=== PATIENT | male | born 1955 ===

== ENCOUNTER 2019-10-10 14:29 | Emergency (ER) | payer OTHER ==
[2019-10-10 14:46] VITALS: BP 143/89
--- NOTE | 2019-10-10 14:54 | UC ---
Back Pain HPI - HPI Summary HPI Summary: 64 yo male presents with neck pain. He tells me that about 2-3 weeks ago he was cutting down a michelle tree and the next day felt pain in his upper trapezius muscles b/l. He rested and took ibuprofen and felt better. When he stopped taking ibuprofen, his symptoms gradually returned. Reports that when he lays flat on his back his muscles will tighten and he feels it in his anterior shoulders. Takes a hour or so to "get loose" again. He saw his chiropractor and this helped. Yesterday he was doing a lot of lifting with garbage bags and various michelle moving of objects - today woke with increased pain. He denies headache, dizziness, SOB, chest pain, palpitations, abdominal pain, n/v, numbness, or tingling. - History of Current Complaint Chief Complaint: UCBackPain Stated Complaint: BACK AND SHOULDER PAIN Time Seen by Provider: 10/10/19 14:54 Hx Obtained From: Patient Onset/Duration: Sudden Onset Severity Initially: Moderate Severity Currently: Moderate Pain Intensity: 6 Pain Scale Used: 0-10 Numeric - Allergies/Home Medications Allergies/Adverse Reactions: Allergies Allergy/AdvReac Type Severity Reaction Status Date / Time No Known Allergies Allergy Verified 04/17/14 09:01 PMH/Surg Hx/FS Hx/Imm Hx Psychological History: Anxiety - Surgical History Surgical History: None - Family History Known Family History: Positive: Cardiac Disease, Hypertension - Social History Lives: With Family Alcohol Use: Daily Alcohol Amount: couple beers a night Substance Use Type: None Smoking Status (MU): Former Smoker Type: Cigarettes Have You Smoked in the Last Year: No - Immunization History Most Recent Tetanus Shot: no recollection Review of Systems All Other Systems Reviewed And Are Negative: No Constitutional: Positive: Negative Skin: Positive: Negative Respiratory: Positive: Negative Cardiovascular: Positive: Negative Gastrointestinal: Positive: Negative Neurovascular: Positive: Negative Musculoskeletal: Positive: Other: - Neck/shoulder pain Neurological: Positive: Negative Psychological: Positive: Negative Physical Exam - Summary Physical Exam Summary: GENERAL: NAD. WDWN. No pain distress. SKIN: No rashes, sores, lesions, or open wounds. NECK: FROM. No lymphadenopathy. CHEST: CTAB. No r/r/w. No accessory muscle use. Breathing comfortably and in no distress. CV: RRR. Pulses intact. Cap refill <2seconds. No JVD or carotid bruit. MSK: UPPER TRAPEZIUS b/l: Pain with turning neck side to side and with neck flexion. NTTP. Negative Spurlings. FROM b/l shoulders - flexion/internal or external rotation does not reproduce pain. NEURO: Alert. Sensations intact C4-T1 b/l. PSYCH: Age appropriate behavior. Triage Information Reviewed: Yes Vital Signs: Initial Vital Signs Temp 99.0 F 10/10/19 14:38 Pulse 93 10/10/19 14:38 Resp 18 10/10/19 14:38 BP 143/89 10/10/19 14:38 Pulse Ox 99 10/10/19 14:38 Vital Signs Reviewed: Yes Back Pain Course/Dx - Course Course Of Treatment: Pain is somewhat difficult to reproduce on exam as it seem to only be brought on by neck movements and not palpations or shoulder movements. He is having no SOB, chest pain, headaches, or dizziness. NSAIDs and chiropractor care are helping and reports stiffness if he lays still too long - favoring an MSK origin of his discomfort. Will try him with flexeriol and naproxen and encouraged him to f/u with his PCP for further eval. If he develops SOB, chest pain, headache, dizziness, epigastric pain, n/v, or pain in between his shoulder blades to go to the ED immediately. Pt voiced understanding and agrees with the plan - Differential Dx/Diagnosis Provider Diagnosis: Muscle strain Discharge ED - Sign-Out/Discharge Documenting (check all that apply): Patient Departure All imaging exams completed and their final reports reviewed: No Studies - Discharge Plan Condition: Stable Disposition: HOME Prescriptions: Cyclobenzaprine TAB* [Flexeril 10 MG TAB*] 10 mg PO BID PRN #14 tab PRN Reason: Spasms Naproxen [Naproxen 500 mg tab] 500 mg PO BID PRN #30 tablet. PRN Reason: Pain - Mild Patient Education Materials: Muscle Strain (ED), Muscle Spasm (ED) Referrals: Stephan Rock MD [Primary Care Provider] - Additional Instructions: If you develop a fever, shortness of breath, chest pain, new or worsening symptoms - please call your PCP or go to the ED immediately. Your blood pressure was elevated at todays visit. Please see your primary provider within 4 weeks for recheck and re-evaluation. Practice gentle range of motion exercises. - Billing Disposition and Condition Condition: STABLE Disposition: Home - Attestation Statements Provider Attestation: I was available for consult. This patient was seen by the EMANUEL. The patient was not presented to, seen by, or examined by me. -Matias
== END 2019-10-10 15:15 | disposition home or self-care (01) ==
LOC: UCEAST 14:29
DX: S16.1XXA Strain of muscle, fascia and tendon at neck level, initial encounter (principal); Z87.891 Personal history of nicotine dependence; X58.XXXA Exposure to other specified factors, initial encounter; Y93.89 Activity, other specified; Y92.9 Unspecified place or not applicable
CPT/HCPCS: 99211; G0463